=== PATIENT | male | born 1935 | race Caucasian/White ===

== ENCOUNTER 2017-10-10 11:15 | Observation (INO) | payer MEDICARE ==
[2017-10-10] MEDS ORDERED: Adacel (T-DAP) 0.5 ML VIAL ONE (11:28)
[2017-10-10] MEDS ORDERED: Fentanyl 100 MCG/2 ML VIAL ONE ×2 (11:28→14:29)
[2017-10-10 11:38] LABS: #Eosinphils 0.2 thou/uL (0.0-0.7); #Lymphocytes 1.5 thou/uL (1.20-3.40); #Monocytes 0.4 thou/uL (0.11-0.59); #Neutrophils 2.8 thou/uL (1.40-6.50); %Basophils 0.5 % (0.0-1.0); %Eosinophils 3.7 % (0.0-10.0); %Lymphocytes 30.7 % (21.0-51.0); %Monocytes 8.1 % (0.0-10.0); %Neutrophils 57.1 % (42.0-75.0); Hemoglobin 14.8 g/dL (14.0-18.0); Mean Corpuscular HGB CONC 35.3 g/dL (32.0-36.0); Mean Corpuscular Volume 96.4 fL (78.0-98.0); Platelet Count 136 thou/uL (130-400); RBC Distribution Width 11.8 % (11.5-14.5); Red Blood Cell (RBC) Count 4.36 mill/uL (4.70-6.10); White Blood Cell (WBC) Count 4.9 thou/uL (4.8-10.8)
[2017-10-10 11:49] LABS: Acetaminophen Less than 6.0 mcg/mL (10.0-30.0); Alcohol 222 mg/dL (Less than 10); Salicylate Less than 8.0 mg/dL (15.0-30.0)
[2017-10-10 11:55] LABS: ALT (SGPT) 13 U/L (8-55); AST (SGOT) 22 U/L (5-34); Albumin 3.7 g/dL (3.4-4.8); Alkaline Phosphatase 81 U/L (40-150); Anion Gap 11 mmol/L (10-20); BUN (Urea Nitrogen) 16 mg/dL (8.4-25.7); Bilirubin, Total 0.6 mg/dL (0.2-1.2); CK (CPK) 118 U/L (30-200); CKMB 2.4 ng/mL (0-6.6); Calc. Creatinine Clearance 0 mL/min (70-130); Calcium 8.7 mg/dL (7.8-10.44); Carbon Dioxide 25 mmol/L (23-31); Chloride 107 mmol/L (98-107); Estimated GFR-MDRD 65; Globulin 2.7 g/dL (2.4-3.5); Glucose 105 mg/dL (83-110); Lipase 31 U/L (8-78); Protein, Total 6.4 g/dL (5.8-8.1); Sodium 139 mmol/L (136-145); Troponin I Less than 0.010 ng/mL (< 0.028)
[2017-10-10 12:15] LABS: PTT 27.2 SEC (22.9-36.1); Prothrombin Time 13.2 SEC (12.0-14.7)
--- NOTE | 2017-10-10 13:17 | CT ---
CT HEAD WITHOUT CONTRAST: Multiple axial tomograms were obtained through the head without IV enhancement. INDICATION: Head injury with loss of consciousness. FINDINGS: The ventricles have normal size and position. No evidence of intracranial hemorrhage or mass. No ev idence of infarct. There is a scalp hematoma over the right frontal bone. No evidence of a skull fracture. There is mucosal edema in the maxillary sinuses which appears chronic because of its peripheral locat ion. IMPRESSION: No acute intracranial injury identified. POS: [facility]
[2017-10-10] MEDS ORDERED: Lidocaine 1% w/Epinephrine 1:100K 20 ML VIAL ONE (13:19)
--- NOTE | 2017-10-10 13:24 | CT ---
CT CERVICAL SPINE WITH CORONAL AND SAGITTAL REFORMATIONS: HISTORY: Fall, neck pain. FINDINGS: Comparison is made with the exam of 06/20/17. Degenerative changes are again seen. There is fusion at C5 and C6 and partial fusion at C6 and C7 ve rtebral bodies. A new acute oblique fracture at the base of the odontoid is seen without significant displacement. IMPRESSION: Type II odontoid fracture. Discussed over the telephone with ER physician, Dr. Joni Juarez, at 11:41 a.m. CODE CR POS: [facility]
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
[2017-10-10] MEDS ORDERED: ISOVUE-370 76%-LOCM 1 ML ONE (15:03)
[2017-10-10] MEDS ORDERED: Dextrose 50% Abboject 50 ML SYRINGE SLOW IVP PRN (15:12)
[2017-10-10] MEDS ORDERED: Dextrose 5% in Water 1,000 ML IV PRN (15:12)
[2017-10-10] MEDS ORDERED: Ondansetron ODT 4 MG TAB PO PRN (15:12)
[2017-10-10] MEDS ORDERED: hydrALAZINE 20 MG/ML VIAL SLOW IVP PRN (15:12)
[2017-10-10] MEDS ORDERED: Sodium Chloride 0.9% 1,000 ML IV SCH (15:12)
[2017-10-10] MEDS ORDERED: Ondansetron HCl/PF 4 MG/2 ML Vial IVP PRN (15:12)
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
[2017-10-10] MEDS: Acetaminophen 500 MG TAB PO SCH ×2 (15:37→21:37)
[2017-10-10] MEDS: Ibuprofen 600 MG TAB PO SCH (15:37)
[2017-10-10 15:43] VITALS: BMI 29.2
[2017-10-10] MEDS: traMADol HCl 50 MG TAB PO PRN (16:51)
[2017-10-10] MEDS: Oxazepam 10 MG CAP PO SCH (17:30)
[2017-10-10] MEDS: Cyclobenzaprine 10 MG TAB PO PRN (18:42)
[2017-10-10] MEDS: Famotidine 20 MG TAB PO SCH (21:37)
[2017-10-11] MEDS: traMADol HCl 50 MG TAB PO PRN (00:24)
[2017-10-11] MEDS: Oxazepam 10 MG CAP PO SCH ×2 (00:24→09:48)
[2017-10-11] MEDS: Ibuprofen 600 MG TAB PO SCH (00:24)
[2017-10-11] MEDS: Acetaminophen 500 MG TAB PO SCH ×2 (04:27→09:48)
[2017-10-11] MEDS: Cyclobenzaprine 10 MG TAB PO PRN (04:27)
[2017-10-11] MEDS ORDERED: Ibuprofen 600 MG TAB PO SCH (09:00)
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
[2017-10-11] MEDS: Famotidine 20 MG TAB PO SCH (09:48)
[2017-10-11 10:20] VITALS: TEMP 97.4
[2017-10-11 12:24] VITALS: BP 125/76
--- NOTE | 2017-10-16 10:40 | EKG ---
Test Reason : Blood Pressure : / mmHG Vent. Rate : 068 BPM Atrial Rate : 068 BPM P-R Int : 218 ms QRS Dur : 172 ms QT Int : 472 ms P-R-T Axes : 046 -20 097 degrees QTc Int : 501 ms Sinus rhythm with 1st degree A-V block with Premature atrial complexes Left bundle branch block Abnormal ECG Confirmed by DIANA DIGGS, ZAINAB ([id number]), city editor LEE HAWKINS ([id number]) on 10/16/2017 10:40:22 AM Referred By: Confirmed By:ZAINAB ORTIZ MD
== END 2017-10-11 14:19 | disposition home or self-care (01) ==
LOC: ERS 11:15 → INTOOBSV 12:38 → SJJU 12:38
PROVIDERS: ADMIT Surgery; ATTEND Surgery
DX: S01.81XA Laceration without foreign body of other part of head, initial encounter (principal); M54.2 Cervicalgia; S12.110A Anterior displaced Type II dens fracture, initial encounter for closed fracture; I10 Essential (primary) hypertension; F15.11 Other stimulant abuse, in remission; F10.129 Alcohol abuse with intoxication, unspecified; Z79.899 Other long term (current) drug therapy; Z95.2 Presence of prosthetic heart valve; Z98.890 Other specified postprocedural states; Y90.7 Blood alcohol level of 200-239 mg/100 ml; V86.59XA Driver of other special all-terrain or other off-road motor vehicle injured in nontraffic accident, initial encounter
CPT/HCPCS: 12054; 70450; 71260; 72125; 74177; 80307; 82140; 82550; 82553; 83690; 83880; 84146; 84484; 85610; 85730; 90471; 90715; 93005; 94760; 96361; 96374; 96376; 97139; 99291; 99292; G0378 ×2; 36416; 80053; 84443; 85025; G0390; J2001; J3010

== ENCOUNTER 2017-11-18 08:19 | Outpatient (CLI) | payer MEDICARE ==
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
== END 2017-11-18 08:20 | disposition home or self-care (01) ==
LOC: TBSIIMAG 08:19
PROVIDERS: ATTEND Neurological Surgery
DX: S12.9XXA Fracture of neck, unspecified, initial encounter (principal)
CPT/HCPCS: 72125

== ENCOUNTER 2018-05-18 10:14 | Outpatient (CLI) | payer MEDICARE ==
[~2018-05-18 10:14] MED LIST: ISOVUE-370 76%-LOCM 1 ML ONE
--- NOTE | 2018-05-18 12:55 | CT ---
CT ANGIOGRAM ABDOMEN AND PELVIS: HISTORY: Evaluate right iliac artery aneurysm. COMPARISON: 10/10/2017 FINDINGS: ABDOMEN: There is a prosthetic heart valve, incompletely evaluated. Heart size is within normal singh its. No pericardial fluid. There are dependent atelectatic changes. No suspicious masses or consol idation. No significant pleural fluid or pneumothorax. There is CT evidence of cholelithiasis without evidence of cholecystitis. There is appropriate arter ial phase enhancement of the liver, spleen, pancreas, and adrenal glands. There is symmetric arteria l phase enhancement of the kidneys. Redemonstration of bilateral renal cortical cysts, similar to th e previous examination. Bilaterally, no obstructive uropathy. The largest cyst is in the left kidne y, measuring 6.9 cm (previously measuring 7 cm). No mesenteric mass, lymphadenopathy, free air, or f ree fluid. Symmetric attenuation of the psoas muscles. Limited evaluation of the alimentary canal due to lack of oral contrast. The gastric mucosa, duodenu m, and multiple normal caliber small bowel loops are identified. The ileocecal junction is normal. Presumed previous appendectomy. There is a nondistended, nondilated colon. There are diverticula in the left hemicolon. No diverticulitis. Mucosal prominence of the sigmoid colon is presumed to be d ue to inadequate distention. PELVIS: No mass, lymphadenopathy, free air, or free fluid. The urinary bladder is unremarkable. Th ere are calcifications in the prostate gland. Limited evaluation of the pelvis due to beam attenuati on artifact from right hip internal fixation hardware. CT ANGIOGRAM: The descending thoracic aorta and abdominal aorta have an overall normal course and ca liber. There is no significant stenosis of the superior mesenteric artery origin, the celiac artery origin, or either renal artery origins. There is some calcification of both renal artery ostia witho ut significant narrowing. The inferior mesenteric artery origin is unremarkable. The aortic bifurca tion is normal in appearance. The left common iliac artery and internal and external iliac arteries are patent. There is mild narrowing of the proximal left internal iliac artery due to atherosclerosi s. There is stable mild dilatation, measuring 1.8 cm. The right common iliac artery and external il iac artery are patent. There is patency with associated aneurysmal dilatation of the proximal right internal iliac artery. There is significant mural thrombus. The [place]sparks lumen is slightly diminutive . The aneurysmal right internal iliac artery measures 2.7 cm anterior-posterior x 2.4 cm medial-late ral (previously measuring 2.9 x 2.5 cm). 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 POS: [facility]
== END 2018-05-18 10:15 | disposition home or self-care (01) ==
LOC: BICCT 10:14
PROVIDERS: ATTEND Thoracic Surgery (Cardiothoracic Vascular Surgery)
DX: I72.3 Aneurysm of iliac artery (principal)
CPT/HCPCS: 74174; 82565; Q9966